=== PATIENT | female | born 1935 | race Two or more races ===

== ENCOUNTER 2020-12-20 05:31 | Day surgery (SDC) | payer OTHER ==
[~2020-12-20 05:31] MED LIST: CLONAZEPAM0.5 M1 PO; FENOFIBRATE160 MG PO; FOSAMAX70 MG PO; HYDROXYUREA500 MG PO; IRBESARTAN150 MG PO; METFORMIN HCL500 M3 PO; SIMVASTATIN5 MG PO; VITAMIN B122500 MCG PO
== END 2020-12-20 14:40 | disposition home or self-care (01) ==
LOC: CIR.AMB 05:31
PROVIDERS: ATTEND Colon & Rectal Surgery
DX: C20 Malignant neoplasm of rectum (principal); Z20.822 Contact with and (suspected) exposure to COVID-19